=== PATIENT | female | born 1980 ===

== ENCOUNTER 2020-12-07 16:23 | Emergency (ER) | payer SELFPAY ==
[~2020-12-07] VITALS: Ht 154.9 cm; Wt 72.3 kg
[2020-12-07 16:30] VITALS: TEMP 98.3
[2020-12-07] MEDS ORDERED: AKTOB 5 ML5 ML OP (17:03)
[2020-12-07 17:07] VITALS: BP 132/86; PULSE 81
== END 2020-12-07 17:07 | disposition home or self-care (01) ==
LOC: COL.ER 16:23
DX: S05.02XA Injury of conjunctiva and corneal abrasion without foreign body, left eye, initial encounter (principal); X58.XXXA Exposure to other specified factors, initial encounter